=== PATIENT | female | born 1985 | race Caucasian/White ===

== ENCOUNTER 2018-05-29 05:58 | Inpatient (IN) | payer MEDICAID | END 2018-05-31 22:25 | disposition home or self-care (01) | LOC: ER 05:58 → OVERFLOW 10:33 → WEST WING 20:40 | DX: A41.9 Sepsis, unspecified organism (principal); N13.6 Pyonephrosis; F12.90 Cannabis use, unspecified, uncomplicated; N39.0 Urinary tract infection, site not specified; N13.2 Hydronephrosis with renal and ureteral calculous obstruction; Z87.442 Personal history of urinary calculi ==